=== PATIENT | male | born 1950 | race Caucasian/White ===

== ENCOUNTER 2018-06-07 17:44 | Emergency (ER) | payer MEDICARE, BC ==
[~2018-06-07] VITALS: Ht 193 cm; Wt 93.2 kg
[2018-06-07 18:35] VITALS: BP 163/97
== END 2018-06-07 18:43 | disposition home or self-care (01) ==
LOC: ED 17:44
PROC: 0HQFXZZ Repair Right Hand Skin, External Approach (ICD-10-PCS; principal; 2018-06-07)
DX: S61.412A Laceration without foreign body of left hand, initial encounter (principal); W26.0XXA Contact with knife, initial encounter; Y93.89 Activity, other specified; Y92.009 Unspecified place in unspecified non-institutional (private) residence as the place of occurrence of the external cause

== ENCOUNTER 2018-06-15 09:28 | Emergency (ER) | payer MEDICARE, BC ==
[~2018-06-15] VITALS: Ht 193 cm; Wt 93.0 kg
[2018-06-15 10:05] VITALS: BP 147/81
== END 2018-06-15 10:05 | disposition home or self-care (01) ==
LOC: ED 09:28
DX: S61.411D Laceration without foreign body of right hand, subsequent encounter (principal); X58.XXXD Exposure to other specified factors, subsequent encounter

== ENCOUNTER 2019-06-02 | Day surgery (SDC) | payer MEDICARE, BC ==
[~2019-06-02] MED LIST: ASPIRIN81 MG PO; LIPITOR40 M1 PO; LISINOPRIL20 MG PO; MULTI VIT PO; SILDENAFIL100 MG; TAMSULOSIN HCL0.4 MG PO
== END 2019-06-02 09:35 | disposition home or self-care (01) ==
PROC: 0DBL8ZX Excision of Transverse Colon, Via Natural or Artificial Opening Endoscopic, Diagnostic (ICD-10-PCS; principal; 2019-06-02)
DX: K57.31 Diverticulosis of large intestine without perforation or abscess with bleeding (principal); D12.3 Benign neoplasm of transverse colon; K64.8 Other hemorrhoids; I10 Essential (primary) hypertension